=== PATIENT | male | born 1995 | race Two or more races ===

== ENCOUNTER 2018-11-29 11:04 | Emergency (ER) | payer OTHER ==
--- NOTE | 2018-11-29 11:46 | EDM.PDOC ---
ED HPI GENERAL MEDICAL PROBLEM - General Chief Complaint: Lower Extremity Injury/Pain Stated Complaint: L ANKLE SWOLLEN, PAIN Time Seen by Provider: 11/29/18 11:30 Source of Information: Reports: Patient History Limitations: Reports: No Limitations - History of Present Illness INITIAL COMMENTS - FREE TEXT/NARRATIVE: Patient presents to ER today status post injury last night during football game to the left ankle states that he rolled it. They were out of town and [place] came in today for an x-ray after being checked out by the strainer tender. Patient states he can bear weight on it but it is painful and swollen double from what it was yesterday he denies any numbness or tingling loss of sensation and has no other complaints at this time he has no foot pain and no knee pain. He does have a history of fracture in that ankle 4 years ago Location: Reports: Lower Extremity, Left Quality: Reports: Dull, Pressure Severity: Mild Improves with: Reports: Other (compression ) Associated Symptoms: Reports: No Other Symptoms Left Foot Pain Score (Numeric/FACES): 6 Review of Systems - Review of Systems Review Of Systems: See Below Constitutional: Reports: No Symptoms Genitourinary: Reports: No Symptoms Musculoskeletal: Reports: Joint Pain, Muscle Pain. Denies: Leg Pain, Foot Pain , Joint Swelling Skin: Reports: No Symptoms Neurological: Reports: No Symptoms Psychiatric: Reports: No Symptoms ED EXAM, GENERAL - Physical Exam Exam: See Below Exam Limited By: No Limitations General Appearance: Alert, WD/WN, No Apparent Distress Cardiovascular: Normal Peripheral Pulses Extremities: Normal Inspection, Normal Range of Motion, Normal Capillary Refill , Other (Exam the left ankle patient has mild edema medial lateral aspects is negative tenderness to palpation over the medial lateral alveolus/navicular negative tenderness palpation with axial load of the fifth metatarsal positive dorsalis pedis posterior tibialis and Refill he has full range of motion no tenderness to palpation over the proximal tibia). No: Non-Tender, No Pedal Edema Neurological: Alert, Oriented, CN II-XII Intact, Normal Cognition, Normal Gait, Normal Reflexes, No Motor/Sensory Deficits Psychiatric: Normal Affect, Normal Mood Skin Exam: Warm, Dry, Intact, Normal Color, No Rash Course - Vital Signs Text/Narrative:: Three-view x-ray of the left ankle was ordered No acute fractures were noted on x-ray mild widening of the medial ankle mortise could relate to underlying deltoid ligament tear Slab and stirrup OCL splint was applied by myself and nurse patient was rechecked and neurovascularly intact after ice to the area as tolerated and as needed over the next 24-48 hours Last Recorded V/S: Last Vital Signs Temp 35.7 C 11/29/18 11:31 Pulse 100 11/29/18 11:31 Resp 16 11/29/18 11:31 BP 120/77 11/29/18 11:31 Pulse Ox 100 11/29/18 11:31 Departure - Departure Time of Disposition: 12:40 Disposition: Home, Self-Care 01 Condition: Good Clinical Impression: Left ankle sprain - Discharge Information Instructions: Ankle Sprain Referrals: PCP,None [Primary Care Provider] - Forms: ED Department Discharge Additional Instructions: Apply ice to the area 30 minutes on 30 minutes off over the next 24 hours is much tolerated Take [id number] Tylenol and Motrin as directed on the bottle Follow-up with orthopedic doctor in the next 24-48 hours secondary to concerns of mild widening of the medial ankle mortise possible deltoid ligament tear Return to the emergency room if anything changes or gets worse You may not play or practice until cleared by orthopedic doctor
--- NOTE | 2018-11-29 12:46 | CR ---
[id number] RAD/RAD Ankle Left 3V Min EXAM: LEFT ANKLE 3 VIEWS INDICATION: Ankle pain after trauma. COMPARISON: None. DISCUSSION: Soft tissue swelling throughout the ankle. Os trigonum. A chronic healed distal fibula fracture is suggested. No acute fracture is identified. Slight widening of the medial ankle mortise may relate to underlying deltoid ligament injury, correlate with evidence of instability. IMPRESSION: 1. Soft tissue swelling with no acute fracture identified. 2. Mild widening of the medial ankle mortise could relate to an underlying deltoid ligament tear. Logan Naranjo MD 11/29/18 0698 Thank you for allowing us to participate in the care of your patient.
== END 2018-11-29 13:16 | disposition home or self-care (01) ==
LOC: VM.ED 11:04
DX: S93.402A Sprain of unspecified ligament of left ankle, initial encounter (principal); X50.1XXA Overexertion from prolonged static or awkward postures, initial encounter; Y93.61 Activity, american tackle football
CPT/HCPCS: 29515; 73610-LT; 99283-25